=== PATIENT | male | born 1975 | race Caucasian/White ===

== ENCOUNTER 2024-04-03 16:00 | Emergency (ER) | payer OTHER ==
--- NOTE | 2024-04-03 16:27 | ER ---
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 Coronavirus screen: At this time, the client does not indicate any symptoms associated with coronavirus-19. Ebola Screen: Patient denies travel to an Ebola-affected area in the 21 days before illness onset. Initial Sepsis Screen: Does the patient meet any 2 criteria? No. Patient's initial sepsis screen is negative. Does the patient have a suspected source of infection? No. Patient's initial sepsis screen is negative. Risk Assessment: Do you want to hurt yourself or someone else? Patient reports no desire to harm self or others. Onset of symptoms was March 2024. 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 - Infectious Disease History:: Denies. - Social history:: Smoking status: Patient denies any tobacco usage or history of. - Family history:: not pertinent. - Hospitalizations: : No recent hospitalization is reported. Screenin:15 [facility] [place] ED Fall Risk Assessment (Adult) History of falling in the last 3 months, aa5 including since admission No falls in past 3 months (0 pts) Confusion or Disorientation No (0 pts) Intoxicated or Sedated No (0 pts) Impaired Gait No (0 pts) Mobility Assist Device Used No (0 pt) Altered Elimination No (0 pt) Score/Fall Risk Level 0 - 2 = Low Risk Oriented to surroundings, Maintained a safe environment, Educated pt \\T\\ family on fall prevention, incl call for assistance when getting out of bed. Abuse screen: Denies threats or abuse. Nutritional screening: No deficits noted. Tuberculosis screening: No symptoms or risk factors identified. Assessment: 16:15 General: Appears comfortable, Behavior is calm, cooperative. Pain: Denies pain. Neuro: aa5 Level of Consciousness is awake, alert, obeys commands, Oriented to person, place, time, situation. Cardiovascular: Patient's skin is warm and dry. Respiratory: Airway is patent Respiratory effort is even, unlabored, Respiratory pattern is regular, symmetrical. GI: No signs and/or symptoms were reported involving the gastrointestinal system. : No signs and/or symptoms were reported regarding the genitourinary system. 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 Derm: Skin is pink, warm \\T\\ dry. Musculoskeletal: Range of motion: intact in all extremities. 16:35 Reassessment: Patient is alert, oriented x 3, equal unlabored respirations, skin aa5 warm/dry/pink. Vital Signs: 16:15 BP 134 / 91; Pulse 63; Resp 18 S; Temp 97.8(TE); Pulse Ox 99% on R/A; Weight 77.11 kg aa5 (R); Height 5 ft. 7 in. (R); 16:15 Body Mass Index 26.63 (77.11 kg, 170.18 cm) aa5 ED Course: 16:03 Patient arrived in ED. im 16:04 Jose Juan Hutchison MD is Attending Physician. rn 16:15 Vikki Peterson RN is Primary Nurse. aa5 16:15 Arm band placed on. aa5 16:15 Patient has correct armband on for positive identification. Bed in low position. Call aa5 light in reach. Side rails up X 1. 16:18 Triage completed. aa5 16:35 No provider procedures requiring assistance completed. Patient did not have IV access aa5 during this emergency room visit. Administered Medications: No medications were administered Medication: 16:15 VIS not applicable for this client. aa5 Outcome: 16:26 Discharge ordered by . rn 16:35 Discharged to home ambulatory, aa5 16:35 Condition: stable 16:35 Discharge instructions given to patient, Instructed on discharge instructions, follow up and referral plans. medication usage, Demonstrated understanding of instructions, follow-up care, medications, Prescriptions given X 1, 16:40 Patient left the ED. hb Signatures: Jose Juan Hutchison MD MD rn Calderon, Audri RN RN aa5 Yue Patel RN RN Jenni Ruff Corrections: (The following items were deleted from the chart) 16:15 16:15 PMHx: None; [email or web address] aa5
--- NOTE | 2024-04-03 16:27 | EDPHYS ---
Physician Documentation [facility] Name: Sukhjinder Moore Age: 48 yrs Sex: Male : 1975 Arrival Date: 04/03/2024 Time: 16:00 Bed 6 Private MD: ED Physician Jose Juan Hutchison HPI: 04/03 16:17 This 48 yrs old Male presents to ER via Unassigned with complaints of Blurred Vision. rn 16:17 The patient is experiencing blurred vision, matting or discharge. Onset: The rn symptoms/episode began/occurred 4 day(s) ago. Duration: the symptoms are continuous. Aggravated by closing eye, rubbing, Alleviated by nothing. Severity of symptoms: At their worst the symptoms were moderate in the emergency department the symptoms are unchanged. The patient has experienced similar episodes in the past. Patient reports has known meibomian gland dysfunction, has been diagnosed by ophthalmology, last time this happened and required a course of steroid drops that helped clear symptoms. Patient has been on a boat and has been symptomatic with blurred vision bilaterally for 3 to 4 days now. Denies pain or injury. No other neurological deficit that is associated with blurred vision. 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 - Infectious Disease History:: Denies. - Social history:: Smoking status: Patient denies any tobacco usage or history of. - Family history:: not pertinent. - Hospitalizations: : No recent hospitalization is reported. ROS: 16:17 Constitutional: Negative for fever, chills, and weight loss, Eyes: Positive for blurred rn vision bilaterally Neuro: Negative for headache, weakness, numbness, tingling, and seizure, Exam: 16:17 Constitutional: This is a well developed, well nourished patient who is awake, alert, rn and in no acute distress. Head/Face: Normocephalic, atraumatic. Eyes: Thick film covering bilateral eyes, right worse than left. No purulence. No erythema or injection of sclera. Pupils equally round and reactive to light Neuro: Awake and alert, GCS 15. Normal gait. Vital Signs: 16:15 BP 134 / 91; Pulse 63; Resp 18 S; Temp 97.8(TE); Pulse Ox 99% on R/A; Weight 77.11 kg aa5 (R); Height 5 ft. 7 in. (R); 16:15 Body Mass Index 26.63 (77.11 kg, 170.18 cm) aa5 MDM: 16:04 Patient medically screened. rn 16:17 Differential diagnosis: Meibomian gland dysfunction, secondary effect of rn hypothyroidism. Data reviewed: vital signs, nurses notes, and as a result, I will discharge patient. Counseling: I had a detailed discussion with the patient and/or guardian regarding the historical points, exam findings, and any diagnostic results supporting the discharge/admit diagnosis, the need for outpatient follow up, to return to the emergency department if symptoms worsen or persist or if there are any questions or concerns that arise at home. Special discussion: I discussed with the patient/guardian in detail that at this point there is no indication for admission to the hospital. It is understood, however, that if the symptoms persist or worsen the patient needs to return immediately for re-evaluation. Special discussion: Based on the history and exam findings, there is no indication for further emergent testing or inpatient evaluation. I discussed with the patient/guardian the need to see the opthamologist for further evaluation of the symptoms. Administered Medications: No medications were administered Disposition Summary: 04/03/24 16:26 Discharge Ordered Notes: Follow up with Ophthalmology DANISH Location: Home rn Problem: an acute exacerbation rn Symptoms: are unchanged rn Condition: Stable rn Diagnosis - Blurred vision rn Followup: rn - With: Private Physician - When: As needed - Reason: Recheck today's complaints, Re-evaluation by your physician Discharge Instructions: - Discharge Summary Sheet rn - Blurred Vision, Adult rn Forms: - Medication Reconciliation Form rn - Antibiotic last pattern grader - Prescription Opioid Use rn - Patient Portal Instructions rn - Leadership Thank You Letter rn Prescriptions: - prednisolone acetate (PF) 1 % Ophthalmic drops, suspension - instill 2 drop OPHTHALMIC route every 4 hours for 3 days; 1 unit; Refills: 0, rn Product Selection Permitted Signatures: Jose Juan Hutchison MD MD rn Calderon, Audri, RN RN aa5 Corrections: (The following items were deleted from the chart) 16:15 16:15 PMHx: None; aa5 aa5
[2024-04-03 16:43] VITALS: BP 134/91; TEMP 97.8; O2SAT 99
== END 2024-04-03 16:40 | disposition home or self-care (01) ==
LOC: ER 16:00
DX: H53.8 Other visual disturbances (principal); H02.889 Meibomian gland dysfunction of unspecified eye, unspecified eyelid
CPT/HCPCS: 99283